=== PATIENT | male | born 2005 | race Caucasian/White ===

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

== ENCOUNTER 2025-05-12 14:22 | Emergency (ER) | payer BC ==
[2025-05-12] MEDS: methylPREDNISolone Sodium Succinate 125 MG/2 ML SDV IVPUSH ONE (15:36)
[2025-05-12] MEDS: Iopamidol 612 MG/ML 100 ML Bottle IVPUSH ONE (15:40)
[2025-05-12] MEDS: Albuterol 0.083% 2.5 MG/3 ML Neb Soln NEB ONE (15:55)
== END 2025-05-12 16:50 | disposition home or self-care (01) ==
LOC: VM.ED 14:22
DX: R11.2 Nausea with vomiting, unspecified (principal); Z79.899 Other long term (current) drug therapy
CPT/HCPCS: 74177; 96361; 96374; 99283; 99284-25; A9270-GY; J2919; J7030; Q9967